=== PATIENT | male | born 1995 | race Caucasian/White ===

== ENCOUNTER 2022-11-28 18:31 | Emergency (ER) | payer MEDICAID, OTHER ==
[~2022-11-28] VITALS: Ht 170.2 cm; Wt 59.4 kg
[2022-11-28 19:15] VITALS: BP 135/64
[2022-11-28] MEDS ORDERED: IBUPROFEN 800 MG TAB PO ONE (19:30)
[2022-11-28] MEDS ORDERED: IBUP800T27 PO (20:06)
== END 2022-11-28 20:15 | disposition home or self-care (01) ==
LOC: ER 18:31
DX: R07.81 Pleurodynia (principal); Z79.1 Long term (current) use of non-steroidal anti-inflammatories (NSAID); W18.39XA Other fall on same level, initial encounter; Y93.89 Activity, other specified; Y92.89 Other specified places as the place of occurrence of the external cause; Y99.8 Other external cause status
CPT/HCPCS: 71101